=== PATIENT | female | born 1990 | race Caucasian/White ===

== ENCOUNTER 2023-09-02 18:14 | Emergency (ER) | payer MEDICAID ==
[~2023-09-02] VITALS: Ht 177.8 cm; Wt 60.0 kg
[2023-09-02 18:32] VITALS: BP 144/78; PULSE 81; RESP 16; TEMP 98.2; O2SAT 99
[2023-09-02] MEDS ORDERED: AMOX-117 PO (18:37)
== END 2023-09-02 18:54 | disposition home or self-care (01) ==
LOC: ER 18:15
DX: H66.91 Otitis media, unspecified, right ear (principal); J02.9 Acute pharyngitis, unspecified
CPT/HCPCS: 99283